=== PATIENT | female | born 1990 | race American Indian/Alaskan Native ===

== ENCOUNTER 2017-04-19 11:21 | Emergency (ER) | payer MEDICAID, OTHER ==
[2017-04-19 11:44] VITALS: BP 110/77; PULSE 89; RESP 17; TEMP 97.8; O2SAT 100
--- NOTE | 2017-04-19 13:27 | RAD ---
PROCEDURE: CHEST RADIOGRAPH, 1 VIEW HISTORY: productive cough, fever - please shield abdomen COMPARISON: None available. FINDINGS: LUNGS: Clear. Note the inferior tips of the CP angles have been excluded from the film more so on the left side PLEURA: No pneumothorax or pleural fluid seen. CARDIOVASCULAR: Normal. OSSEOUS STRUCTURES: No significant abnormalities. VISUALIZED UPPER ABDOMEN: Normal. OTHER FINDINGS: None. IMPRESSION: No acute infiltrates
--- NOTE | 2017-04-19 14:07 | C.PDOC ---
History Of Present Illness 26 y/o female presents to the ER complaining of persistent productive cough with yellow and green sputum which has been present for the past 10 days. 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 She finished the Tamiflu but her cough is still lingering. Patient reports that she also has mild wheezing at night when she is lying down.Of note, the patient is 29 weeks . Time Seen by Provider: 04/19/17 11:58 Chief Complaint (Nursing): Flu-like Symptoms History Per: Patient History/Exam Limitations: no limitations Onset/Duration Of Symptoms: Days Current Symptoms Are (Timing): Still Present Associated Symptoms: Cough Past Medical History Reviewed: Historical Data, Nursing Documentation, Vital Signs Vital Signs: Last Vital Signs Temp 97.8 F 04/19/17 11:37 Pulse 89 04/19/17 11:37 Resp 17 04/19/17 11:37 BP 110/77 04/19/17 11:37 Pulse Ox 100 04/19/17 17:06 - Medical History PMH: Hyperthyroidism (SEE COMMENT), Sexually Transmitted Disease Denies: Chronic Kidney Disease Surgical History: No Surg Hx Family History: States: No Known Family Hx - Social History Hx Alcohol Use: No Hx Substance Use: No - Immunization History Hx Tetanus Toxoid Vaccination: No Hx Influenza Vaccination: No Hx Pneumococcal Vaccination: No Review Of Systems Constitutional: Negative for: Fever, Chills Respiratory: Positive for: Cough Gastrointestinal: Negative for: Nausea, Vomiting, Abdominal Pain, Diarrhea Physical Exam - Physical Exam Appears: Non-toxic, No Acute Distress, Other (comfortable,coughing occassionally , speaking in full sentences) Skin: Normal Color, Warm Head: Atraumatic, Normacephalic Eye(s): bilateral: Normal Inspection, PERRL Ear(s): Bilateral: Normal Nose: Normal Oral Mucosa: Moist Throat: Normal, No Erythema, No Exudate Neck: Supple Chest: Symmetrical Cardiovascular: Rhythm Regular Respiratory: Normal Breath Sounds, No Accessory Muscle Use, No Rales, No Rhonchi , No Wheezing Gastrointestinal/Abdominal: Normal Exam, Soft, No Tenderness, Other (gravid) Extremity: Normal ROM Neurological/Psych: Oriented x3, Normal Speech, Normal Cognition, Normal Motor, Normal Sensation ED Course And Treatment O2 Sat by Pulse Oximetry: 100 (RA) Pulse Ox Interpretation: Normal - Other Rad No standard instances X-Ray: Viewed By Me, Read By Radiologist Interpretation: PROCEDURE: CHEST RADIOGRAPH, 1 VIEW. HISTORY: productive cough, fever - please shield abdomen. COMPARISON: None available. FINDINGS: LUNGS: Clear. Note the inferior tips of the CP angles have been excluded from the film more so on the left side. PLEURA: No pneumothorax or pleural fluid seen. CARDIOVASCULAR: Normal. OSSEOUS STRUCTURES: No significant abnormalities. VISUALIZED UPPER ABDOMEN: Normal. OTHER FINDINGS: None. IMPRESSION: No acute infiltrates Progress Note: CXR is negative and shows no infiltrates. Patient given Albuterol inhaler for bronchospasms and told to follow up with PCP in 1-2 days. Disposition Counseled Patient/Family Regarding: Diagnosis, Need For Followup, Rx Given - Disposition Referrals: Malathi Moore MD [Non-Staff] - Disposition: HOME/ ROUTINE Disposition Time: 14:10 Condition: STABLE Additional Instructions: FOLLOW UP WITH YOUR DOCTOR IN 1-2 DAYS USE MEDICATION NEEDED DRINK PLENTY OF FLUIDS RETURN TO ER IF SYMPTOMS WORSEN Prescriptions: Albuterol HFA [Ventolin HFA 90 mcg/actuation (8 g)] 0.09 mg IH Q4 PRN #1 puff PRN Reason: Wheezing Instructions: Bronchospasm (ED) Forms: [facility] [facility] (Mongolian) Print Language: SLOVENIAN - POA Present On Arrival: None - Clinical Impression Clinical Impression: Bronchospasm, Viral upper respiratory infection - Scribe Statement The provider has reviewed the documentation as recorded by the Scribe Jay Walsh Provider Attestation: All medical record entries made by the Scribe were at my direction and personally dictated by me. I have reviewed the chart and agree that the record accurately reflects my personal performance of the history, physical exam, medical decision making, and the department course for this patient. I have also personally directed, reviewed, and agree with the discharge instructions and disposition.
== END 2017-04-19 15:14 | disposition home or self-care (01) ==
LOC: C.ER 11:21
DX: O26.893 Other specified pregnancy related conditions, third trimester (principal); Z3A.29 29 weeks gestation of pregnancy; J06.9 Acute upper respiratory infection, unspecified; J98.01 Acute bronchospasm